=== PATIENT | female | born 1955 | race Caucasian/White ===

== ENCOUNTER → 2018-10-10 | Outpatient (CLI) | payer OTHER ==
--- NOTE | 2018-10-10 17:01 | Diagnostic Imaging Report ---
INDICATION: Left shoulder pain. AP, oblique, and trans-scapular views of the left shoulder are obtained. No fracture or dislocation is seen. There is no acute bony abnormality. There is mild degenerative change of the AC joint. IMPRESSION: No acute fracture of left shoulder. Mild degenerative change of the AC joint is noted. Dictated by: Dictated on workstation # [id number]
--- NOTE | 2018-10-10 17:04 | Diagnostic Imaging Report ---
INDICATION: Neck pain radiating to the left shoulder. COMPARISON: No relevant comparison is available. FINDINGS: There is straightening of the cervical lordosis. Cervical spine alignment appears within normal limits. Vertebral body heights appear maintained. There are multilevel degenerative endplate changes with endplate osteophytes and spurring most significant at C4-C5, C5-C6 and C6-C7. There is also multilevel facet arthropathy. There is no widening of the predental space. There is no abnormal prevertebral soft tissue thickening. The odontoid view is unremarkable. IMPRESSION: 1. Normal height and alignment of the cervical spine. Vertebral body heights are well-maintained. There are multilevel endplate changes and facet arthropathy most advanced at C4-C5, C5-C6 and C6-C7. Dictated by: Dictated on workstation # [id number]
== END ==
LOC: RAD FS 16:35
PROVIDERS: ATTEND Family Medicine
DX: M19.012 Primary osteoarthritis, left shoulder (principal); M47.812 Spondylosis without myelopathy or radiculopathy, cervical region; M46.82 Other specified inflammatory spondylopathies, cervical region
CPT/HCPCS: 72040; 73030